=== PATIENT | female | born 1955 | race Two or more races ===

== ENCOUNTER → 2016-11-17 | Outpatient (CLI) | payer BC ==
--- NOTE | 2016-11-17 15:09 | RAD ---
Cervical spine, 5 views, 11/17/2016: History: Neck pain There is mild disc space narrowing and moderate marginal spurring at C5-6 and C6-7. The cervical vertebral heights are well-maintained. No fracture or dislocation is evident. The neural foramina are widely patent bilaterally. The prevertebral soft tissues are unremarkable. IMPRESSION: 1. Mild degenerative change in the lower cervical spine. 2. No acute abnormality is detected.
== END | disposition home or self-care (01) ==
LOC: RAD 12:27
PROVIDERS: ATTEND Family Medicine
DX: M50.30 Other cervical disc degeneration, unspecified cervical region (principal)
CPT/HCPCS: 72050

== ENCOUNTER → 2018-02-05 | Day surgery (SDC) | payer BC ==
[~2018-02-05] MED LIST: LIDOCAINE 1% PF 2 ML VIAL. ID; LIDOCAINE 2% PF Vial for OR 5 ML VIAL.; MORPHINE SULFATE 4 MG/ML DISP.SYRIN. IV; ONDANSETRON PF 4 MG/2 ML VIAL. IV; PROCHLORPERAZINE 10 MG/2 ML VIAL. IV; PROPOFOL 20 ML IV; fentaNYL PF VIAL 100 MCG/2 ML VIAL IV
[2018-02-05] MEDS: IV RINGERS,LACTATED 1000ML 1,000 ML IV (07:08)
== END | disposition home or self-care (01) ==
LOC: ENDOS 06:34
DX: Z12.11 Encounter for screening for malignant neoplasm of colon (principal); K64.0 First degree hemorrhoids; K57.30 Diverticulosis of large intestine without perforation or abscess without bleeding; I10 Essential (primary) hypertension; Z79.899 Other long term (current) drug therapy; Z82.3 Family history of stroke
CPT/HCPCS: 45378; J2704

== ENCOUNTER → 2018-11-09 | Outpatient (CLI) | payer BC ==
[2018-02-05 08:13] VITALS: BP 145/88
[~2018-11-09] MED LIST changes: +CARV25TA PO; -LIDOCAINE 1% PF 2 ML VIAL. ID; -LIDOCAINE 2% PF Vial for OR 5 ML VIAL.; -MORPHINE SULFATE 4 MG/ML DISP.SYRIN. IV; -ONDANSETRON PF 4 MG/2 ML VIAL. IV; -PROCHLORPERAZINE 10 MG/2 ML VIAL. IV; -PROPOFOL 20 ML IV; -fentaNYL PF VIAL 100 MCG/2 ML VIAL IV
--- NOTE | 2018-11-10 08:52 | RAD ---
DATE: 11/09/2018 EXAM: MAMMO JASON SCREENING BILATERAL HISTORY: Routine screening COMPARISON: 10/28/2016 This study was interpreted with the benefit of Computerized Aided Detection (CAD). Breast Density: SCATTERED The breast parenchyma shows scattered fibroglandular densities. Breast parenchyma level B. FINDINGS: 2-D and 3-D tomosynthesis imaging was performed in CC and MLO projections. No new or enlarging breast densities are seen. Minimal benign type calcifications present. No suspicious microcalcifications have developed. IMPRESSION: Stable mammograms without evidence of malignancy. BI-RADS CATEGORY: 2 BENIGN FINDING(S) RECOMMENDED FOLLOW-UP: 12M 12 MONTH FOLLOW-UP PQRS compliance statement: Patient information was entered into a reminder system with a target due date for the next mammogram. Mammography is a sensitive method for finding small breast cancers, but it does not detect them all and is not a substitute for careful clinical examination. A negative mammogram does not negate a clinically suspicious finding and should not result in delay in biopsying a clinically suspicious abnormality. "Our facility is accredited by the [employer] Mammography Program."
--- NOTE | 2018-12-17 16:09 | RAD ---
Right shoulder, 3 views, 11/09/2018: History: Shoulder pain No fracture or dislocation is identified. There is slight spurring and offset at the AC joint. There is mild spurring and cyst formation at rotator cuff insertion sites on the greater tuberosity. The periarticular soft tissues are unremarkable. IMPRESSION: 1. Mild degenerative change. 2. No acute bony abnormality is detected.
== END | disposition home or self-care (01) ==
LOC: MAMMO 13:39
PROVIDERS: ATTEND Family Medicine
DX: Z12.31 Encounter for screening mammogram for malignant neoplasm of breast (principal); M19.011 Primary osteoarthritis, right shoulder
CPT/HCPCS: 73030; 77063; 77067

== ENCOUNTER → 2021-05-10 | Outpatient (CLI) | payer BC, MEDICARE ==
[2018-02-05 08:13] VITALS: BP 145/88
--- NOTE | 2021-05-10 13:37 | KCIC ---
Examination: MRI of the right shoulder without contrast HISTORY: History of weakness, pain right shoulder, decreased range of motion COMPARISON: None TECHNIQUE: Multiplanar, multisequence MR imaging of the right shoulder performed without contrast. FINDINGS: The long head of the biceps tendon within the bicipital groove. The attachment of the long head the b iceps tendon to the superior labral anchor grossly appears intact. The attachment of the subscapulari s tendon grossly appears intact. Moderate increased signal identified in the subscapularis tendon, kebede praspinatus, infraspinatus tendon likely tendinosis. There is full-thickness tear of the supraspinatu s tendon with tendon retraction up to the level of the glenoid. There is full-thickness tear of the i nfraspinatus tendon particularly superior fibers with tendon retraction up to the level of the glenoi d. Few of the inferior fibers of the infraspinatus tendon grossly appears intact. There is extension of fluid from the shoulder joint and the subacromial subdeltoid bursa. There is severe joint space lo ss identified in the glenohumeral joint, acromioclavicular joint. Acromion is type II. Visualized labrum grossly appears unremarkable. Moderate fatty atrophic changes of the supraspinatus, infraspinatus muscles. Fat is obscured in the rotator interval. IMPRESSION: 1. Full-thickness tear of the supraspinatus tendon with tendon retraction up to the level of the gle noid. 2. Full-thickness tear of the infraspinatus tendon particularly superior fibers with tendon retracti on up to the level of the glenoid. Few of the inferior fibers of the infraspinatus tendon grossly lisa ears intact. 3. Moderate tendinosis of the rotator cuff. 4. Severe degenerative changes glenohumeral joint, acromioclavicular joint. Electronically signed by: Danielito Hardy MD (05/10/2021 1:34 PM) [id number]
== END ==
LOC: KCIC MRI 10:35
PROVIDERS: ATTEND Family Medicine
DX: S46.911A Strain of unspecified muscle, fascia and tendon at shoulder and upper arm level, right arm, initial encounter (principal); M25.511 Pain in right shoulder; M75.121 Complete rotator cuff tear or rupture of right shoulder, not specified as traumatic; X58.XXXA Exposure to other specified factors, initial encounter; Y93.89 Activity, other specified; Y92.89 Other specified places as the place of occurrence of the external cause; Y99.8 Other external cause status; M77.8 Other enthesopathies, not elsewhere classified; M19.011 Primary osteoarthritis, right shoulder
CPT/HCPCS: 73221